=== PATIENT | female | born 1975 | race Two or more races ===

== ENCOUNTER 2018-12-23 10:45 | Emergency (ER) | payer SELFPAY ==
[~2018-12-23] VITALS: Ht 154.9 cm; Wt 63.4 kg
[2018-12-23] MEDS ORDERED: ALBUTEROL (0.083%) 2.5MG/3ML NEB HHN STA (11:31)
[2018-12-23] MEDS ORDERED: ALBUTEROL (0.083%) 2.5MG/3ML NEB ONE (12:00)
[2018-12-23 12:53] VITALS: BP 124/77
== END 2018-12-23 12:54 | disposition home or self-care (01) ==
LOC: ER 10:56
DX: R05 Cough (principal); R07.0 Pain in throat; R07.9 Chest pain, unspecified
CPT/HCPCS: 71045; 81025; 99283; J7611

== ENCOUNTER 2022-09-03 02:20 | Emergency (ER) | payer BC ==
[~2022-09-03] VITALS: Ht 154.9 cm; Wt 64.0 kg
[2022-09-03 02:22] VITALS: BP 111/74
== END 2022-09-03 04:00 | disposition left against medical advice (07) ==
LOC: ER 02:20
DX: Z53.21 Procedure and treatment not carried out due to patient leaving prior to being seen by health care provider (principal)